=== PATIENT | male | born 1990 | race African-American/Black ===

== ENCOUNTER 2017-05-31 18:51 | Emergency (ER) | payer OTHER ==
[~2017-05-31] VITALS: Ht 167.6 cm; Wt 81.6 kg
[2017-05-31 19:14] VITALS: BP 124/48
--- NOTE | 2017-05-31 19:18 | NUR ---
PT RETURNED TO LOBBY
--- NOTE | 2017-05-31 23:22 | NUR ---
PATIENT LEFT WITHOUT BEING SEEN BY DR. CONTI. NO FURTHER CARE PROVIDED FOR PATIENT.
== END 2017-05-31 23:22 | disposition left against medical advice (07) ==
LOC: MED 18:51
DX: R50.9 Fever, unspecified (principal); R05 Cough; Z53.21 Procedure and treatment not carried out due to patient leaving prior to being seen by health care provider

== ENCOUNTER 2017-07-15 21:55 | Emergency (ER) | payer MEDICAID, OTHER ==
[~2017-07-15] VITALS: Ht 167.6 cm; Wt 81.2 kg
[2017-07-15 22:19] VITALS: BP 109/66
--- NOTE | 2017-07-15 23:04 | NUR ---
PT TAKEN TO CHAIR B
--- NOTE | 2017-07-15 23:10 | NUR ---
27Y/MPT. PRESENST TO ED WITH C/O RT. FOOT PAIN. PT. BROKE LEFT ANKLE ON 07/13. SEEN AT [facility]. C/O PAIN TONIGHT, NEEDS PAIN MEDS AND MD NOTE. AAO X4, AMBULATORY WITH UNSTEADY GAIT. RT. FOOT WRAP WITH BANDAGE ON SPLINT. C/O PAIN 01/07. VSS, ER MD MADE AWARE OF PT. STATUS.
--- NOTE | 2017-07-15 23:20 | NUR ---
Patient being evaluated by DR. JASSO at bedside.
[2017-07-15] MEDS ORDERED: MORPHINE SULFATE 4 MG/ML SYR IM ONE (23:35)
[2017-07-15] MEDS ORDERED: KETOROLAC 60 MG/2 ML VIAL IM ONE (23:45)
--- NOTE | 2017-07-16 00:15 | NUR ---
Patient discharged with v/s stable. Written and verbal after care instructions given and explained. Patient alert, oriented and verbalized understanding of instructions. Ambulatory with steady gait. All questions addressed prior to discharge. ID band removed. Patient advised to follow up with PMD. Rx of NAPROSYN 500 MG given. Patient educated on indication of medication including possible reaction and side effects. Opportunity to ask questions provided and answered.
[2017-07-16 01:34] VITALS: BP 109/66
== END 2017-07-16 00:15 | disposition home or self-care (01) ==
LOC: MED 21:55
DX: S92.221A Displaced fracture of lateral cuneiform of right foot, initial encounter for closed fracture (principal); J45.909 Unspecified asthma, uncomplicated; Z88.2 Allergy status to sulfonamides; V87.8XXA Person injured in other specified noncollision transport accidents involving motor vehicle (traffic), initial encounter; Y93.89 Activity, other specified; Y92.488 Other paved roadways as the place of occurrence of the external cause; Y99.8 Other external cause status
CPT/HCPCS: 96372; 99283; J1885; J2270

== ENCOUNTER 2023-08-19 20:40 | Emergency (ER) | payer MEDICAID, OTHER ==
[~2023-08-19] VITALS: Ht 170.2 cm; Wt 99.8 kg
[2023-08-19 21:20] VITALS: BP 138/62; PULSE 95; RESP 17; TEMP 98.4; O2SAT 98
[2023-08-20] MEDS ORDERED: DIPH25TA53 PO (04:49)
[2023-08-20] MEDS ORDERED: ELIMC TP (04:49)
[2023-08-20] MEDS: PERMETHRIN 5% 60 GM TUBE TP ONE (05:14)
== END 2023-08-20 05:05 | disposition home or self-care (01) ==
LOC: MED 20:40
DX: S50.862A Insect bite (nonvenomous) of left forearm, initial encounter (principal); S50.861A Insect bite (nonvenomous) of right forearm, initial encounter; S70.362A Insect bite (nonvenomous), left thigh, initial encounter; S70.361A Insect bite (nonvenomous), right thigh, initial encounter; L29.9 Pruritus, unspecified; J45.909 Unspecified asthma, uncomplicated; Z79.899 Other long term (current) drug therapy; W57.XXXA Bitten or stung by nonvenomous insect and other nonvenomous arthropods, initial encounter; Y92.89 Other specified places as the place of occurrence of the external cause; Y93.89 Activity, other specified; Y99.8 Other external cause status
CPT/HCPCS: 99282

== ENCOUNTER 2023-11-22 18:25 | Emergency (ER) | payer MEDICAID ==
[~2023-11-22] VITALS: Ht 167.6 cm; Wt 102.5 kg
[~2023-11-22 18:25] MED LIST: DIPH25TA53 PO; ELIMC TP
[2023-11-22 18:27] VITALS: BP 123/64; PULSE 95; RESP 18; TEMP 98; O2SAT 97
[2023-11-22 18:57] VITALS: PULSE 86; RESP 22; O2SAT 96
[2023-11-22] MEDS: ALBUTEROL SULFATE/IPRATROPIU 3 ML SOL IH ONE ×2 (18:57→20:02)
[2023-11-22] MEDS: methylPREDNISolone SS 125 MG/2 ML VIAL IM ONE (19:40)
[2023-11-22] MEDS: DEXAMETHASONE 10 MG/ML VIAL PO ONE (19:49)
[2023-11-22 20:03] VITALS: PULSE 93; RESP 18; O2SAT 98
[2023-11-22] MEDS ORDERED: ALBU0.0912 INH (20:05)
[2023-11-22] MEDS ORDERED: GUAI237L61 PO (20:05)
[2023-11-22 20:21] VITALS: BP 146/80; PULSE 109; RESP 17; TEMP 98.2; O2SAT 97
== END 2023-11-22 20:21 | disposition home or self-care (01) ==
LOC: MED 18:25
DX: J45.901 Unspecified asthma with (acute) exacerbation (principal); J06.9 Acute upper respiratory infection, unspecified; F41.9 Anxiety disorder, unspecified; Z88.2 Allergy status to sulfonamides; Z79.899 Other long term (current) drug therapy
CPT/HCPCS: 94640; 99284; J1100; J2919